=== PATIENT | male | born 1970 | race Caucasian/White ===

== ENCOUNTER 2020-01-02 11:37 | Inpatient (IN) ==
[~2020-01-02 11:37] MED LIST: Acetaminophen IV 1,000 MG/100 ML INFUS..BTL IVPB ONE; Famotidine 20 MG/2 ML VIAL IVP ONE; Ringers Solution, Lactated 1,000 ML IVC SCH
[2020-01-02] MEDS ORDERED: Vancomycin 1,750 MG/517.5 ML IV.SOLN IVPB ONE (12:05)
[2020-01-02] MEDS ORDERED: Ethanol\\Acetic Acid\\Na Ace\\Ben 1,000 ML IRRIG.SOLN IR ONE (14:14)
[2020-01-02] MEDS ORDERED: *HR* Midazolam HCl 2 MG/2 ML VIAL ONE (14:14)
[2020-01-02] MEDS ORDERED: Vancomycin 1,000 MG VIAL ONE (14:14)
[2020-01-02] MEDS ORDERED: *HR* FentaNYL (PF) 100 MCG/2 ML VIAL ONE (14:14)
[2020-01-02] MEDS ORDERED: *HR* PHENYLEPHRINE 1,000 MCG/10 ML SYRINGE IVP ONE ×3 (14:44→15:31)
[2020-01-02] MEDS ORDERED: Tranexamic Acid 1,000 MG/10 ML VIAL ONE (14:44)
[2020-01-02] MEDS ORDERED: EPHEDrine 50 MG/ML VIAL ONE (14:45)
[2020-01-02 16:44] LABS: Hematocrit 39.5 % (37.5-50.1); Hemoglobin 13.3 g/dL (12.9-16.9)
[2020-01-02] MEDS ORDERED: Sennosides 8.6 MG TABLET PO PRN (17:14)
[2020-01-02] MEDS ORDERED: *HR* Promethazine 25 MG/ML VIAL IVP PRN (17:14)
[2020-01-02] MEDS ORDERED: Ondansetron 4 MG/2 ML VIAL IVP PRN (17:14)
[2020-01-02] MEDS ORDERED: Naloxone 0.4 MG/ML INJ IVP PRN (17:14)
[2020-01-02] MEDS ORDERED: D5% in Water 1,000 ML IVC PRN (17:14)
[2020-01-02] MEDS ORDERED: Ibuprofen 400 MG TABLET PO PRN (17:14)
[2020-01-02] MEDS ORDERED: MOM Conc 10 ML UD.LIQ PO PRN (17:14)
[2020-01-02] MEDS ORDERED: *HR* Dextrose 50 % in Water (Vial) 50 ML VIAL IVP PRN (17:14)
[2020-01-02] MEDS ORDERED: Dextrose Gel 15 GM/37.5 ML TUBE PO PRN ×2 (17:14)
[2020-01-02] MEDS: *HR* OxyCODONE Immed Rel 5 MG TABLET PO PRN ×2 (17:55→22:00)
[2020-01-02] MEDS: Insulin LISPRO 300 UNITS/3 ML VIAL SQ SCH (17:56)
[2020-01-02] MEDS: Ascorbic Acid 500 MG TABLET PO SCH (17:56)
[2020-01-02] MEDS: Ringers Solution, Lactated 1,000 ML IVC SCH (19:36)
[2020-01-02] MEDS: Gabapentin 300 MG CAPSULE PO SCH (19:37)
[2020-01-02] MEDS: Ketorolac 30 MG/ML VIAL IVP PRN (19:38)
[2020-01-02] MEDS: HYDROcodone BIT/Homatropine 5 MG TABLET PO PRN (20:42)
[2020-01-02] MEDS ORDERED: Insulin LISPRO 300 UNITS/3 ML VIAL SQ SCH (21:00)
[2020-01-03] MEDS ORDERED: Vancomycin 1,750 MG/517.5 ML IV.SOLN IVPB ONE (02:00)
[2020-01-03] MEDS: Ketorolac 30 MG/ML VIAL IVP PRN ×2 (02:14→10:40)
[2020-01-03 02:55] LABS: Basophils % 0.6 %; Eosinophils # 0.1 K/mcL (0.0-0.6); Eosinophils % 1.1 %; Hematocrit 37.5 % (37.5-50.1); Immature Granulocytes % 0.4 % (0-4); Lymphocytes % 19.8 %; Mean Corpuscular Hemoglobin 27.4 pg (28.0-33.3); Mean Corpuscular Volume 85.6 fL (83.0-100.0); Mean Platelet Volume 9.9 fL (9.4-12.4); Monocytes # 0.7 K/mcL (0.0-1.3); Neutrophils # 3.4 K/mcL (1.6-8.9); Platelet Count 202 K/mcL (140-400); Red Blood Count 4.38 M/mcL (4.19-5.50); Red Cell Distribution Width 13.3 % (11.5-14.5); Segmented Neutrophils % 65.1 %; White Blood Count 5.2 K/mcL (4.3-11.1)
[2020-01-03 03:11] LABS: BUN/Creatinine Ratio 17 (6-26); Blood Urea Nitrogen 16 mg/dL (6-20); Calcium 8.5 mg/dL (8.6-10.3); Carbon Dioxide 23 mEq/L (23-29); Chloride 103 mEq/L (98-107); Glucose 134 mg/dL (70-105); Osmolality,Calculated 283 (280-300); Potassium 3.8 mEq/L (3.5-5.1); Sodium 135 mEq/L (136-145); eGFR For African Americans > 60 (> 60); eGFR For Non-African Americans > 60 (> 60)
[2020-01-03] MEDS: HYDROcodone BIT/Homatropine 5 MG TABLET PO PRN (05:17)
[2020-01-03] MEDS: Ringers Solution, Lactated 1,000 ML IVC SCH (07:23)
[2020-01-03] MEDS: *HR* OxyCODONE Immed Rel 5 MG TABLET PO PRN ×2 (07:23→13:00)
[2020-01-03] MEDS: Ascorbic Acid 500 MG TABLET PO SCH (08:12)
[2020-01-03] MEDS: Gabapentin 300 MG CAPSULE PO SCH (08:13)
[2020-01-03 08:41] VITALS: BP 154/88
[2020-01-03] MEDS: Insulin LISPRO 300 UNITS/3 ML VIAL SQ SCH (08:55)
[2020-01-03] MEDS ORDERED: Aspirin Enteric Coated 81 MG Tablet PO SCH ×2 (09:00)
[2020-01-03] MEDS ORDERED: Multivit/Ca/Min/Fe/FA 1 TAB TABLET PO SCH (09:00)
== END 2020-01-03 13:10 | disposition home or self-care (01) | DRG 468 ==
LOC: SAMDAY 11:37 → 3NENU 17:15
PROVIDERS: ADMIT Orthopaedic Surgery; ATTEND Orthopaedic Surgery